=== PATIENT | female | born 1970 | race Hispanic/Latino ===

== ENCOUNTER 2021-07-11 08:28 | Emergency (ER) | payer OTHER ==
[~2021-07-11] VITALS: Ht 157.5 cm; Wt 79.6 kg
[2021-07-11] MEDS ORDERED: KETOROLAC TROMETHAMINE 30 MG/ML VIAL IM STA (08:39)
[2021-07-11] MEDS ORDERED: NAPROXEN250 MG PO (10:28)
== END 2021-07-11 10:50 | disposition home or self-care (01) ==
LOC: ER 08:36
DX: M79.604 Pain in right leg (principal); S82.391A Other fracture of lower end of right tibia, initial encounter for closed fracture; X58.XXXA Exposure to other specified factors, initial encounter; I10 Essential (primary) hypertension
CPT/HCPCS: 29515; 73590; 99283; J1885

== ENCOUNTER → 2021-09-13 | Outpatient (CLI) | payer OTHER ==
[~2021-09-13] MED LIST: NAPROXEN250 MG PO
== END ==
LOC: MRI 09:16
PROVIDERS: ATTEND Podiatrist Foot Surgery
DX: S86.011A Strain of right Achilles tendon, initial encounter (principal)